=== PATIENT | male | born 1950 | race Caucasian/White ===

== ENCOUNTER 2016-11-29 09:50 | Day surgery (SDC) | payer BC, MEDICARE ==
[~2016-11-29 09:50] MED LIST: Cefuroxime 10 MG/ML SYRINGE EYELF SCH; Lidocaine 1% PF 2 ML SDV INJECT SCH; Pilocarpine 4% Ophth Soln 15 ML Bot EYELF SCH; Proparacaine 0.5% Ophth Soln 15 ML Bottle EYEBOTH SCH; Tetracaine 0.5% 2 ML Bottle EYELF SCH
[2016-11-29] MEDS: Polymyxin B/Trimethoprim 10 ML Bottle EYELF SCH ×3 (10:41→12:27)
[2016-11-29] MEDS: Apraclonidine 0.5% Ophth Soln 5 ML Bot EYELF SCH ×3 (10:46→12:27)
[2016-11-29] MEDS: Phenylephrine 2.5% Ophth Soln 2 ML Bot EYELF SCH ×5 (10:52→12:09)
--- NOTE | 2016-11-29 11:21 | PCM.PREANE ---
Preanesthetic Assessment - Anesthesia/Transfusion/Family Hx Anesthesia History: Prior Anesthesia Without Reaction Type of Anesthesia Reaction: Unknown Family History of Anesthesia Reaction: No Transfusion History: Unknown - Review of Systems General: No Symptoms Pulmonary: No Symptoms Cardiovascular: No Symptoms Gastrointestinal: No symptoms Neurological: No Symptoms Other: Reports: None - Physical Assessment NPO Status Date: 11/28/16 NPO Status Time: 20:00 Pulse: 46 O2 Sat by Pulse Oximetry: 96 Respiratory Rate: 16 Blood Pressure: 146/63 Vital Signs: Last Vital Signs Temp 36.3 C 11/29/16 10:35 Pulse 45 L 11/29/16 10:35 Resp 16 11/29/16 10:35 BP 146/63 H 11/29/16 10:35 Pulse Ox 96 11/29/16 10:35 Height: 1.93 m Weight: 106.594 kg ASA Class: 1 Mental Status: Alert & Oriented x3 Dentition: Reports: Normal Dentition Thyro-Mental Finger Breadths: 3 Mouth Opening Finger Breadths: 3 ROM/Head Extension: Full Lungs: Clear to auscultation, Normal respiratory effort Cardiovascular: Regular Rate, Regular Rhythm - Allergies Allergies/Adverse Reactions: Allergies Allergy/AdvReac Type Severity Reaction Status Date / Time No Known Allergies Allergy Verified 11/29/16 10:56 - Blood Blood Available: No Product(s) Available: None - Anesthesia Plan Pre-Op Medication Ordered: None - Acknowledgements Anesthesia Type Planned: MAC Pt an Appropriate Candidate for the Planned Anesthesia: Yes Alternatives and Risks of Anesthesia Discussed w Pt/Guardian: Yes Pt/Guardian Understands and Agrees with Anesthesia Plan: Yes PreAnesthesia Questionnaire - HOME MEDS Home Medications: Home Meds Multivitamin [Multivitamins] 1 tab PO DAILY 11/28/16 [History] - CURRENT (IN HOUSE) MEDS Current Meds: Current Medications Apraclonidine HCl (Iopidine 0.5% Ophth Soln) 0 ml EYELF ASDIRECTED ARLYN Stop: 11/29/16 18:00 Last Admin: 11/29/16 10:46 Dose: 1 drop Cefuroxime Sodium (Zinacef) 0 mg EYELF ASDIRECTED ARLYN Stop: 11/29/16 18:00 Lidocaine HCl (Xylocaine-Mpf 1%) 2 ml INJECT ASDIRECTED ARLYN Stop: 11/29/16 18:00 Phenylephrine HCl (Don-Synephrine 2.5% Ophth Soln) 0 ml EYELF ASDIRECTED ARLYN Stop: 11/29/16 18:00 Last Admin: 11/29/16 11:11 Dose: 1 drop Pilocarpine HCl (Pilocar 4% Ophth Soln) 0 ml EYELF ASDIRECTED ARLYN Stop: 11/29/16 18:00 Polymyxin/Trimethoprim Sulfate (Polytrim Ophth Soln) 0 ml EYELF ASDIRECTED ARLYN Stop: 11/29/16 18:00 Last Admin: 11/29/16 10:41 Dose: 1 drop Proparacaine HCl (Proparacaine 0.5% Ophth Soln) 0 ml EYEBOTH ASDIRECTED ARLYN Stop: 11/29/16 18:00 Tetracaine (Pontocaine 0.5% Ophth Drops) 0 ml EYELF ASDIRECTED ARLYN Stop: 11/29/16 18:00 Tropicamide (Mydriacyl 1% Ophth Soln) 0 ml EYELF ASDIRECTED ARLYN Stop: 11/29/16 18:00 Last Admin: 11/29/16 11:07 Dose: 1 drop Preanesthetic Assessment - PHYSICAL ASSESSMENT O2 Sat by Pulse Oximetry: 96 RR: 16 Vital Signs: Last Vital Signs Temp 36.3 C 11/29/16 10:35 Pulse 45 L 11/29/16 10:35 Resp 16 11/29/16 10:35 BP 146/63 H 11/29/16 10:35 Pulse Ox 96 11/29/16 10:35 Height: 1.93 m Weight: 106.594 kg NPO Status Date: 11/28/16 NPO Status Time: 20:00 - ALLERGIES Allergies/Adverse Reactions: Allergies Allergy/AdvReac Type Severity Reaction Status Date / Time No Known Allergies Allergy Verified 11/29/16 10:56
--- NOTE | 2016-11-29 12:33 | PCM48HPAN ---
Post Anesthesia Note - EVALUATION WITHIN 48HRS OF ANESTHETIC Vital Signs in Normal Range: Yes Patient Participated in Evaluation: Yes Respiratory Function Stable: Yes Airway Patent: Yes Cardiovascular Function Stable: Yes Hydration Status Stable: Yes Pain Control Satisfactory: Yes Nausea and Vomiting Control Satisfactory: Yes Mental Status Recovered: Yes
[2016-11-29 12:51] VITALS: BP 148/82
== END 2016-11-29 12:40 | disposition home or self-care (01) ==
LOC: JD.SDS 09:50
PROVIDERS: ATTEND Ophthalmology
DX: H26.9 Unspecified cataract (principal); Z96.659 Presence of unspecified artificial knee joint; Z98.890 Other specified postprocedural states; Z79.899 Other long term (current) drug therapy; Z87.891 Personal history of nicotine dependence
CPT/HCPCS: 66984; A9270; C1780; J0697

== ENCOUNTER 2017-01-24 11:31 | Day surgery (SDC) | payer BC, MEDICARE ==
[~2017-01-24 11:31] MED LIST changes: -Cefuroxime 10 MG/ML SYRINGE EYELF SCH; +Cefuroxime 10 MG/ML SYRINGE EYERT SCH; -Pilocarpine 4% Ophth Soln 15 ML Bot EYELF SCH; +Pilocarpine 4% Ophth Soln 15 ML Bot EYERT SCH; -Proparacaine 0.5% Ophth Soln 15 ML Bottle EYEBOTH SCH; -Tetracaine 0.5% 2 ML Bottle EYELF SCH
[2017-01-24] MEDS ORDERED: ALPRAZolam 0.25 MG Tab PO ONE (12:53)
--- NOTE | 2017-01-24 12:54 | PCM.PREANE ---
Preanesthetic Assessment - Anesthesia/Transfusion/Family Hx Anesthesia History: Prior Anesthesia Without Reaction Family History of Anesthesia Reaction: No Transfusion History: No Prior Transfusion(s) - Review of Systems General: No Symptoms Pulmonary: No Symptoms Cardiovascular: No Symptoms Gastrointestinal: No symptoms Neurological: No Symptoms Other: Reports: None - Physical Assessment NPO Status Date: 01/24/17 NPO Status Time: 05:00 Pulse: 48 O2 Sat by Pulse Oximetry: 95 Respiratory Rate: 16 Blood Pressure: 155/85 Temperature: 36.3 C Height: 1.93 m Weight: 106.594 kg ASA Class: 2 Mental Status: Alert & Oriented x3 Dentition: Reports: Normal Dentition, [place](s), Broken Tooth/Teeth Thyro-Mental Finger Breadths: 3 Mouth Opening Finger Breadths: 2 ROM/Head Extension: Full Lungs: Clear to auscultation, Normal respiratory effort Cardiovascular: Regular Rate, Regular Rhythm, No Murmurs - Allergies Allergies/Adverse Reactions: Allergies Allergy/AdvReac Type Severity Reaction Status Date / Time No Known Allergies Allergy Verified 01/23/17 15:33 - Blood Blood Available: No Product(s) Available: None - Anesthesia Plan Pre-Op Medication Ordered: None - Acknowledgements Anesthesia Type Planned: MAC Pt an Appropriate Candidate for the Planned Anesthesia: Yes Alternatives and Risks of Anesthesia Discussed w Pt/Guardian: Yes Pt/Guardian Understands and Agrees with Anesthesia Plan: Yes PreAnesthesia Questionnaire - SUBSTANCE USE Smoking Status *Q: Never Smoker Tobacco Use Within Last Twelve Months: No Second Hand Smoke Exposure: No Days Per Week of Alcohol Use: 2 Number of Drinks Per Day: 1 Total Drinks Per Week: 2 Recreational Drug Use History: No - HOME MEDS Home Medications: Home Meds Multivitamin [Multivitamins] 1 tab PO DAILY 11/28/16 [History] - CURRENT (IN HOUSE) MEDS Current Meds: Current Medications Brimonidine Tartrate (Alphagan 0.2% Ophth Soln) 0 ml EYERT ASDIRECTED ARLYN Stop: 01/24/17 18:00 Cefuroxime Sodium (Zinacef) 0 mg EYERT ASDIRECTED ARLYN Stop: 01/24/17 18:00 Lidocaine HCl (Xylocaine-Mpf 1%) 1 ml INJECT ASDIRECTED ARLYN Stop: 01/24/17 18:00 Phenylephrine HCl (Don-Synephrine 2.5% Ophth Soln) 0 ml EYERT ASDIRECTED ARLYN Stop: 01/24/17 18:00 Pilocarpine HCl (Pilocar 4% Ophth Soln) 0 ml EYERT ASDIRECTED ARLYN Stop: 01/24/17 18:00 Polymyxin/Trimethoprim Sulfate (Polytrim Ophth Soln) 0 ml EYERT ASDIRECTED ARLYN Stop: 01/24/17 18:00 Tetracaine (Pontocaine 0.5% Ophth Drops) 0 ml EYERT ASDIRECTED ARLYN Stop: 01/24/17 18:00 Tropicamide (Mydriacyl 1% Ophth Soln) 0 ml EYERT ASDIRECTED ARLYN Stop: 01/24/17 18:00
[2017-01-24] MEDS: Polymyxin B/Trimethoprim 10 ML Bottle EYERT SCH ×3 (13:01→14:31)
[2017-01-24] MEDS: Brimonidine 0.2% Ophth Soln 5 ML Bottle EYERT SCH ×3 (13:06→14:31)
[2017-01-24] MEDS: Phenylephrine 2.5% Ophth Soln 2 ML Bot EYERT SCH ×5 (13:11→14:13)
[2017-01-24] MEDS: Tetracaine 0.5% 2 ML Bottle EYERT SCH ×4 (14:07→14:20)
[2017-01-24 14:46] VITALS: BP 152/92
== END 2017-01-24 14:41 | disposition home or self-care (01) ==
LOC: JD.SDS 11:31
PROVIDERS: ATTEND Ophthalmology
DX: H25.811 Combined forms of age-related cataract, right eye (principal); H52.31 Anisometropia; H40.053 Ocular hypertension, bilateral; H35.372 Puckering of macula, left eye; N19 Unspecified kidney failure; Z98.42 Cataract extraction status, left eye; Z96.1 Presence of intraocular lens; Z87.891 Personal history of nicotine dependence; Z79.899 Other long term (current) drug therapy; Z98.890 Other specified postprocedural states; Z83.518 Family history of other specified eye disorder
CPT/HCPCS: 66984; A9270; C1780; J0697

== ENCOUNTER 2021-01-25 06:17 | Day surgery (SDC) | payer MEDICARE, BC ==
--- NOTE | 2021-01-22 07:15 | PCM.SN.2 ---
- Free Text/Narrative Note: Right selective femoral nerve block at the adductor canal for post-procedure pain control under US guidance requested by Dr. Arguello. Time Out: 910 Start: 914 End: 914 Chart reviewed. Consent signed. Questions answered. Appropriate monitors applied. Time out performed. Right mid-shaft femur identified with ultrasound, scanning medially of femur, the femoral artery in the adductor canal visualized, and the femoral nerve located laterally to the artery. The skin was prepped lateral to the ultrasound probe with chlorahexadine times two. The 21ga 4 insulated block needle was inserted under direct ultrasound guidance into the adductor canal. 20mL of 0.5% ropivacaine with 1:200,000 epinephrine was injected circumferentially around the nerve with intermittent negative aspiration noted. Patient tolerated the procedure well. Sterile technique noted along with sterile gloves, mask, and sterile probe cover. See picture on progress note and vital signs on nurses notes. Block completed in PACU. Thank you, Peg Tejada CRNA
[~2021-01-25 06:17] MED LIST changes: +Acetaminophen 325 MG Tab PO SCH; -Cefuroxime 10 MG/ML SYRINGE EYERT SCH; +EPINEPHrine 1 MG/ML SDV ONE; +Lactated Ringers 1,000 ML IV SCH; -Lidocaine 1% PF 2 ML SDV INJECT SCH; +Lidocaine 1%/Sod Bicarbonate in NS 8.4% 1 ML Syringe IDERM PRN; -Pilocarpine 4% Ophth Soln 15 ML Bot EYERT SCH; +Pregabalin 25 MG Cap PO SCH; +Ropivacaine 0.5% 5 MG/ML 30 ML SDV ONE; +Sodium Chloride 0.9% 10 ML Syringe FLUSH PRN; +oxyCODONE ER 10 MG TAB.ER PO SCH
[2021-01-25] MEDS ORDERED: Lidocaine 1% 4 ML ONE (06:20)
[2021-01-25] MEDS ORDERED: Midazolam 1 MG/ML 2 ML SDV ONE (06:20)
[2021-01-25] MEDS ORDERED: Propofol 200 MG/20 ML SDV ONE ×2 (06:20→08:15)
[2021-01-25] MEDS ORDERED: fentaNYL 100 MCG/2 ML SDV ONE (06:20)
[2021-01-25] MEDS ORDERED: ceFAZolin 1 GM Vial ONE (06:20)
--- NOTE | 2021-01-25 06:35 | PCM.PREANE ---
Preanesthetic Assessment - Anesthesia/Transfusion/Family Hx Anesthesia History: Prior Anesthesia Without Reaction Family History of Anesthesia Reaction: No Transfusion History: No Prior Transfusion(s) Intubation History: History of Difficulty Intubation - Review of Systems General: No Symptoms Pulmonary: No Symptoms Cardiovascular: No Symptoms Gastrointestinal: No Symptoms Neurological: No Symptoms Other: Reports: Diabetes (BS 134 @ 48589) - Physical Assessment NPO Status Date: 01/24/21 NPO Status Time: 20:00 ASA Class: 2 Mental Status: Alert & Oriented x3 Airway Class: Mallampati = 3 Dentition: Reports: Normal Dentition ROM/Head Extension: Full Lungs: Clear to Auscultation, Normal Respiratory Effort Cardiovascular: Regular Rate, Regular Rhythm - Allergies Allergies/Adverse Reactions: Allergies Allergy/AdvReac Type Severity Reaction Status Date / Time No Known Allergies Allergy Verified 01/22/21 12:44 - Acknowledgements Anesthesia Type Planned: Spinal, Regional Block Pt an Appropriate Candidate for the Planned Anesthesia: Yes Alternatives and Risks of Anesthesia Discussed w Pt/Guardian: Yes Pt/Guardian Understands and Agrees with Anesthesia Plan: Yes PreAnesthesia Questionnaire HEENT History: Reports: Other (See Below) Other HEENT History: tinnitis, decreased hearing, wears glasses Other Cardiovascular History: mitral valve regurgitation, high cholesterol, bradycardia Respiratory History: Reports: Other (See Below) Other Respiratory History: history of difficult intubation Gastrointestinal History: Reports: Diverticulosis, Hiatal Hernia, Other (See Below) Other Gastrointestinal History: umbilical hernia Genitourinary History: Reports: Other (See Below) Other Genitourinary History: acute kidney injury, kidney biopsy 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 Musculoskeletal History: Reports: Arthritis, Other (See Below) Other Musculoskeletal History: left shoulder pain Neurological History: Reports: None Psychiatric History: Reports: None Endocrine/Metabolic History: Reports: Diabetes, Type II Hematologic History: Reports: None Immunologic History: Reports: None Oncologic (Cancer) History: Reports: None Dermatologic History: Reports: None - Past Surgical History Head Surgeries/Procedures: Reports: None HEENT Surgical History: Reports: Eye Surgery, Tonsillectomy Cardiovascular Surgical History: Reports: None Respiratory Surgical History: Reports: None GI Surgical History: Reports: Colonoscopy, Other (See Below) Other GI Surgeries/Procedures: umbilical hernia, laparoscopy, ventral hernia with repair Female Surgical History: Reports: None Male Surgical History: Reports: None Endocrine Surgical History: Reports: None Neurological Surgical History: Reports: None Musculoskeletal Surgical History: Reports: Knee Replacement Dermatological Surgical History: Reports: None - SUBSTANCE USE Tobacco Use Status *Q: Former Tobacco User Recreational Drug Use History: No - HOME MEDS Home Medications: Home Meds Multivitamin [Multivitamins] 1 tab PO DAILY 11/28/16 [History] Acetaminophen [Tylenol] 650 mg PO DAILY 01/22/21 [History] Beta-Carotene(A) w/C & E/Min [Prosight] 1 tab PO DAILY 01/22/21 [History] Cholecalciferol (Vitamin D3) [Vitamin D3] 5,000 unit PO DAILY 01/22/21 [History] Rosuvastatin Calcium 20 mg PO DAILY 01/22/21 [History] Tamsulosin HCl [Flomax] 0.4 mg PO DAILY 01/22/21 [History] Zinc 50 mg PO DAILY 01/22/21 [History] metFORMIN [Glucophage XR] 500 mg PO BID 01/22/21 [History] Aspirin [Aspirin EC] 325 mg PO BID #84 tab 01/25/21 [Rx] Cyclobenzaprine [Flexeril] 10 mg PO BID PRN #20 tab 01/25/21 [Rx] oxyCODONE 5 - 10 mg PO Q4H PRN #40 tab 01/25/21 [Rx] - CURRENT (IN HOUSE) MEDS Current Meds: Current Medications Acetaminophen (Acetaminophen 325 Mg Tab) 975 mg PO ONETIME ARLYN Morphine Sulfate 8 mg/Epinephrine HCl 0.3 mg/Cefuroxime Sodium 750 mg/Ketorolac Tromethamine 30 mg/Sodium Chloride 7.9 ml 0 mg .XX ASDIRECTED PRN PRN Reason: Pain Stop: 01/25/21 13:00 Lactated Ringer's (Ringers, Lactated) 1,000 mls @ 125 mls/hr IV ASDIRECTED ARLYN Stop: 01/25/21 23:00 Lidocaine/Sodium Bicarbonate (Lidocaine 1%/Sod Bicarbonate In Ns 8.4% 1 Ml Syringe) 0.25 ml IDERM ONETIME PRN PRN Reason: Prior to IV Start Stop: 01/25/21 18:00 Oxycodone HCl (Oxycodone Er 10 Mg Tab.Er) 10 mg PO ONETIME ARLYN Pregabalin (Pregabalin 25 Mg Cap) 50 mg PO ONETIME ARLYN Sodium Chloride (Sodium Chloride 0.9% 10 Ml Syringe) 10 ml FLUSH ASDIRECTED PRN PRN Reason: Keep Vein Open Stop: 01/25/21 18:00 Discontinued Medications Cefazolin Sodium (Cefazolin 1 Gm Vial) Confirm Administered Dose 2 gm .ROUTE .STK-MED ONE Stop: 01/25/21 06:21 Epinephrine HCl (Epinephrine 1 Mg/Ml Sdv) Confirm Administered Dose 1 mg .ROUTE .STK-MED ONE Stop: 01/25/21 06:15 Fentanyl (Fentanyl 100 Mcg/2 Ml Sdv) Confirm Administered Dose 100 mcg .ROUTE .STK-MED ONE Stop: 01/25/21 06:21 Lidocaine HCl (Xylocaine-Mpf 1%) Confirm Administered Dose 4 mls @ as directed .ROUTE .STK-MED ONE Stop: 01/25/21 06:21 Midazolam HCl (Midazolam 1 Mg/Ml 2 Ml Sdv) Confirm Administered Dose 2 mg .ROUTE .STK-MED ONE Stop: 01/25/21 06:21 Propofol (Propofol 200 Mg/20 Ml Sdv) Confirm Administered Dose 200 mg .ROUTE .STK-MED ONE Stop: 01/25/21 06:21 Ropivacaine (Ropivacaine 0.5% 5 Mg/Ml 30 Ml Sdv) Confirm Administered Dose 30 ml .ROUTE .STK-MED ONE Stop: 01/25/21 06:15 Tranexamic Acid (Tranexamic Acid 1,000 Mg/10 Ml Amp) Confirm Administered Dose 1,000 mg .ROUTE .STK-MED ONE Stop: 01/25/21 06:27 Vancomycin HCl (Vancomycin 1 Gm Sdv) Confirm Administered Dose 1 gm .ROUTE .STK- MED ONE Stop: 01/25/21 06:27
--- NOTE | 2021-01-25 06:58 | PCM.PREANE ---
Preanesthetic Assessment - Anesthesia/Transfusion/Family Hx Anesthesia History: Prior Anesthesia Without Reaction Family History of Anesthesia Reaction: No Transfusion History: No Prior Transfusion(s) Intubation History: History of Difficulty Intubation - Review of Systems Other: Reports: Diabetes (BS 134 @ 95624) - Physical Assessment NPO Status Date: 01/24/21 NPO Status Time: 20:00 Vital Signs: Last Vital Signs Temp 36.4 C 01/25/21 06:20 Pulse 54 L 01/25/21 06:20 Resp 16 01/25/21 06:20 BP 134/74 01/25/21 06:20 Pulse Ox 97 01/25/21 06:20 Cardiovascular: Murmurs - Allergies Allergies/Adverse Reactions: Allergies Allergy/AdvReac Type Severity Reaction Status Date / Time No Known Allergies Allergy Verified 01/22/21 12:44 PreAnesthesia Questionnaire HEENT History: Reports: Other (See Below) Other HEENT History: tinnitis, decreased hearing, wears glasses Other Cardiovascular History: mitral valve regurgitation, high cholesterol, bradycardia Respiratory History: Reports: Other (See Below) Other Respiratory History: history of difficult intubation Gastrointestinal History: Reports: Diverticulosis, Hiatal Hernia, Other (See Below) Other Gastrointestinal History: umbilical hernia Genitourinary History: Reports: Other (See Below) Other Genitourinary History: acute kidney injury, kidney biopsy 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 Musculoskeletal History: Reports: Arthritis, Other (See Below) Other Musculoskeletal History: left shoulder pain Neurological History: Reports: None Psychiatric History: Reports: None Endocrine/Metabolic History: Reports: Diabetes, Type II Hematologic History: Reports: None Immunologic History: Reports: None Oncologic (Cancer) History: Reports: None Dermatologic History: Reports: None - Past Surgical History Head Surgeries/Procedures: Reports: None HEENT Surgical History: Reports: Eye Surgery, Tonsillectomy Cardiovascular Surgical History: Reports: None Respiratory Surgical History: Reports: None GI Surgical History: Reports: Colonoscopy, Other (See Below) Other GI Surgeries/Procedures: umbilical hernia, laparoscopy, ventral hernia with repair Female Surgical History: Reports: None Male Surgical History: Reports: None Endocrine Surgical History: Reports: None Neurological Surgical History: Reports: None Musculoskeletal Surgical History: Reports: Knee Replacement Dermatological Surgical History: Reports: None - SUBSTANCE USE Tobacco Use Status *Q: Former Tobacco User Recreational Drug Use History: No - HOME MEDS Home Medications: Home Meds Multivitamin [Multivitamins] 1 tab PO DAILY 11/28/16 [History] Acetaminophen [Tylenol] 650 mg PO DAILY 01/22/21 [History] Beta-Carotene(A) w/C & E/Min [Prosight] 1 tab PO DAILY 01/22/21 [History] Cholecalciferol (Vitamin D3) [Vitamin D3] 5,000 unit PO DAILY 01/22/21 [History] Rosuvastatin Calcium 20 mg PO DAILY 01/22/21 [History] Tamsulosin HCl [Flomax] 0.4 mg PO DAILY 01/22/21 [History] Zinc 50 mg PO DAILY 01/22/21 [History] metFORMIN [Glucophage XR] 500 mg PO BID 01/22/21 [History] Aspirin [Aspirin EC] 325 mg PO BID #84 tab 01/25/21 [Rx] Cyclobenzaprine [Flexeril] 10 mg PO BID PRN #20 tab 01/25/21 [Rx] oxyCODONE 5 - 10 mg PO Q4H PRN #40 tab 01/25/21 [Rx] - CURRENT (IN HOUSE) MEDS Current Meds: Current Medications Acetaminophen (Acetaminophen 325 Mg Tab) 975 mg PO ONETIME ARLYN Morphine Sulfate 8 mg/Epinephrine HCl 0.3 mg/Cefuroxime Sodium 750 mg/Ketorolac Tromethamine 30 mg/Sodium Chloride 7.9 ml 0 mg .XX ASDIRECTED PRN PRN Reason: Pain Stop: 01/25/21 13:00 Lactated Ringer's (Ringers, Lactated) 1,000 mls @ 125 mls/hr IV ASDIRECTED ARLYN Stop: 01/25/21 23:00 Lidocaine/Sodium Bicarbonate (Lidocaine 1%/Sod Bicarbonate In Ns 8.4% 1 Ml Syringe) 0.25 ml IDERM ONETIME PRN PRN Reason: Prior to IV Start Stop: 01/25/21 18:00 Oxycodone HCl (Oxycodone Er 10 Mg Tab.Er) 10 mg PO ONETIME ARLYN Pregabalin (Pregabalin 25 Mg Cap) 50 mg PO ONETIME ARLYN Sodium Chloride (Sodium Chloride 0.9% 10 Ml Syringe) 10 ml FLUSH ASDIRECTED PRN PRN Reason: Keep Vein Open Stop: 01/25/21 18:00 Discontinued Medications Cefazolin Sodium (Cefazolin 1 Gm Vial) Confirm Administered Dose 2 gm .ROUTE .STK-MED ONE Stop: 01/25/21 06:21 Epinephrine HCl (Epinephrine 1 Mg/Ml Sdv) Confirm Administered Dose 1 mg .ROUTE .STK-MED ONE Stop: 01/25/21 06:15 Fentanyl (Fentanyl 100 Mcg/2 Ml Sdv) Confirm Administered Dose 100 mcg .ROUTE .STK-MED ONE Stop: 01/25/21 06:21 Lidocaine HCl (Xylocaine-Mpf 1%) Confirm Administered Dose 4 mls @ as directed .ROUTE .STK-MED ONE Stop: 01/25/21 06:21 Midazolam HCl (Midazolam 1 Mg/Ml 2 Ml Sdv) Confirm Administered Dose 2 mg .ROUTE .STK-MED ONE Stop: 01/25/21 06:21 Propofol (Propofol 200 Mg/20 Ml Sdv) Confirm Administered Dose 200 mg .ROUTE .STK-MED ONE Stop: 01/25/21 06:21 Ropivacaine (Ropivacaine 0.5% 5 Mg/Ml 30 Ml Sdv) Confirm Administered Dose 30 ml .ROUTE .STK-MED ONE Stop: 01/25/21 06:15 Tranexamic Acid (Tranexamic Acid 1,000 Mg/10 Ml Amp) Confirm Administered Dose 1,000 mg .ROUTE .STK-MED ONE Stop: 01/25/21 06:27 Vancomycin HCl (Vancomycin 1 Gm Sdv) Confirm Administered Dose 1 gm .ROUTE .STK- MED ONE Stop: 01/25/21 06:27
[2021-01-25] MEDS ORDERED: ePHEDrine 50 MG/ML SDV ONE (07:26)
[2021-01-25] MEDS ORDERED: Lactated Ringers 1,000 ML ONE (07:29)
[2021-01-25] MEDS ORDERED: Ondansetron 4 MG/2 ML SDV ONE (07:37)
[2021-01-25] MEDS ORDERED: Ketorolac 30 MG/ML SDV ONE (07:37)
[2021-01-25] MEDS ORDERED: Ondansetron 4 MG/2 ML SDV IVPUSH PRN (07:53)
[2021-01-25] MEDS ORDERED: fentaNYL 100 MCG/2 ML SDV IVPUSH PRN (07:53)
[2021-01-25] MEDS: Morphine 8 MG, EPINEPHrine 0.3 MG, Cefuroxime 750 MG, Ketorolac 30 MG, Sodium Chloride ... PRN ×10 (08:09→08:19)
[2021-01-25] MEDS: Vancomycin 1 GM SDV ONE ×2 (08:10→08:29)
--- NOTE | 2021-01-25 08:57 | PCM.POSTAN ---
POST ANESTHESIA ASSESSMENT - MENTAL STATUS Mental Status: Alert, Oriented - VITAL SIGNS Vital Signs: Last Vital Signs Temp 36.4 C 01/25/21 06:20 Pulse 54 L 01/25/21 06:20 Resp 16 01/25/21 06:20 BP 134/74 01/25/21 06:20 Pulse Ox 97 01/25/21 06:20 - RESPIRATORY Respiratory Status: Respiratory Rate WNL, Airway Patent, O2 Saturation Stable - CARDIOVASCULAR CV Status: Pulse Rate WNL, Blood Pressure Stable - GASTROINTESTINAL GI Status: No Symptoms - PAIN Pain Score: 0 - POST OP HYDRATION Hydration Status: Adequate & Stable
--- NOTE | 2021-01-25 10:59 | CR ---
Right knee: AP and lateral views of the right knee were obtained utilizing portable technique. Comparison: Prior knee study of 04/13/09. Right knee prosthesis is seen. Components are aligned. Underlying bony structures are intact. Patellar prosthesis is also seen. Small joint effusion is seen. Soft tissue air is noted. Impression: 1. Satisfactory appearance of recently placed right knee prosthesis. Diagnostic code #2
--- NOTE | 2021-01-25 11:43 | PCM48HPAN ---
Post Anesthesia Note - EVALUATION WITHIN 48HRS OF ANESTHETIC Vital Signs in Normal Range: Yes Patient Participated in Evaluation: Yes Respiratory Function Stable: Yes Airway Patent: Yes Cardiovascular Function Stable: Yes Hydration Status Stable: Yes Pain Control Satisfactory: Yes Nausea and Vomiting Control Satisfactory: Yes Mental Status Recovered: Yes Vital Signs: Last Vital Signs Temp 36.3 C 01/25/21 10:10 Pulse 59 L 01/25/21 10:10 Resp 14 01/25/21 10:10 BP 115/62 01/25/21 10:10 Pulse Ox 97 01/25/21 10:10
[2021-01-25 13:26] VITALS: BP 131/82; PULSE 61
--- NOTE | 2021-02-01 07:47 | PCM.OPNOTE ---
- General Post-Op/Procedure Note Date of Surgery/Procedure: 01/25/21 Operative Procedure(s): revision right total knee arthroplasty patellar component Pre Op Diagnosis: painful right total knee arthroplasty Post-Op Diagnosis: Same Anesthesia Technique: Local, MAC, Spinal Primary Surgeon: Tyrese Arguello Anesthesia Provider: Sheeba Spencer Small Animal Veterinarian: Gaye Vargas Small Animal Veterinarian: Aminah Nobles in mLs: 5 Complications: None Condition: Good Free Text/Narrative:: 35x10
--- NOTE | 2021-02-04 09:19 | OR ---
DATE OF OPERATION: 01/25/2021 SURGEON: Tyrese Arguello MD OPERATION PERFORMED: Revision right total knee arthroplasty, patellar component. PREOPERATIVE DIAGNOSIS: Painful right total knee arthroplasty. POSTOPERATIVE DIAGNOSIS: Painful right total knee arthroplasty. ANESTHESIA: Local MAC with spinal. ANESTHESIA PROVIDER: Sheeba Spencer CRNA CERTIFIED REGISTERED NURSE ANESTHETIST: Gaye Vargas PA-C; and Aminah Nobles LPN. ESTIMATED BLOOD LOSS: 5 mL. COMPLICATIONS: None. CONDITION: Stable. IMPLANTS: Cemented [place] 35 x 10 mm asymmetric patella. DESCRIPTION OF PROCEDURE: The patient was identified in the preoperative holding area. Proper site was marked and identified by the surgeon. The patient was taken back to the operative theater, where after adequate anesthesia, the patient's right lower extremity was sterilely prepped and draped in the usual sterile fashion. OR time-out was performed. The patient received 2 g IV Ancef. Right lower extremity was then exsanguinated. Tourniquet was insufflated to 250 mmHg. The previous anterior incision was utilized. This was taken down and a medial parapatellar arthrotomy was created. The patient was noted to have a large amount of scar tissue around the patellar component as well as calcified tissue on the anterior portion of the tibia and around the entire patellar component and into his quadriceps tendon. At this time, I did an extensive debridement of the synovium as well as all calcified tissue around his patellar component, removing excess bone as well that had formed all around the patellar component. At this time, a reciprocating saw was then used to remove the patellar component. The patellar component that was there measured a 30 mm. At this time, we resected it down to a 14 for a 35 x 10 mm patella. Drill holes were then drilled. The patient was noted to have a small cyst, so we eccentrically located the drill holes to miss the cyst. At this time, cement was mixed on the back table. The patellar component was irrigated and the patellar component was then cemented into place with a 35 x 10 mm asymmetric [place] patella. The rest of the components appeared intact. There was no signs of infection otherwise. The patient after we did the debridement and the new patellar component gained 10 degrees of flexion compared to preoperative motion. 1 L of pulse lavage irrigation with Ancef was irrigated through the needle as well as IrriSept irrigation. Periarticular injection was completed. #2 barbed suture was used for closure of the medial parapatellar arthrotomy, 2-0 Vicryl was used subcutaneously, as well as Stratafix and Prineo was used for closure of the skin. The patient had a sterile soft dressing applied and sent to the PACU in stable condition. MMODAL /[id number]
== END 2021-01-25 13:10 | disposition home or self-care (01) ==
LOC: JD.SDS 06:17
PROVIDERS: ATTEND Orthopaedic Surgery
DX: T84.84XA Pain due to internal orthopedic prosthetic devices, implants and grafts, initial encounter (principal); E11.9 Type 2 diabetes mellitus without complications; E78.00 Pure hypercholesterolemia, unspecified; E78.5 Hyperlipidemia, unspecified; H93.13 Tinnitus, bilateral; R00.1 Bradycardia, unspecified; Z87.891 Personal history of nicotine dependence; Z79.82 Long term (current) use of aspirin; Z79.84 Long term (current) use of oral hypoglycemic drugs; Z79.899 Other long term (current) drug therapy; Z96.651 Presence of right artificial knee joint; G89.18 Other acute postprocedural pain; M25.561 Pain in right knee
CPT/HCPCS: 27486; 73560; 82947; 97110; 97161; 97165; 97535; A9270; C1776; J0171; J0690; J0697; J1885; J2250; J2270; J2405; J2704; J2795; J3010; J3370; J7120; 01402; 64450; 76942; 99100

== ENCOUNTER 2022-04-20 17:36 | Emergency (ER) | payer MEDICARE, BC ==
[2022-04-20 18:00] VITALS: BP 155/74; PULSE 55
== END 2022-04-20 19:38 | disposition home or self-care (01) ==
LOC: JD.ED 17:36
DX: M16.11 Unilateral primary osteoarthritis, right hip (principal); E11.9 Type 2 diabetes mellitus without complications; E78.00 Pure hypercholesterolemia, unspecified; Z79.82 Long term (current) use of aspirin; Z79.84 Long term (current) use of oral hypoglycemic drugs; Z96.651 Presence of right artificial knee joint
CPT/HCPCS: 73502-26-RT; 73502-RT; 81003; 99283

== ENCOUNTER 2022-05-30 08:42 | Day surgery (SDC) | payer MEDICARE, BC ==
[~2022-05-30 08:42] MED LIST changes: -EPINEPHrine 1 MG/ML SDV ONE; +Lactated Ringers 1,000 ML ONE; +Lidocaine 1% 4 ML ONE; +Midazolam 1 MG/ML 2 ML SDV ONE; +Morphine 8 MG, EPINEPHrine 0.3 MG, Cefuroxime 750 MG, Ketorolac 30 MG, Sodium Chloride ... PRN; +Propofol 200 MG/20 ML SDV ONE; -Ropivacaine 0.5% 5 MG/ML 30 ML SDV ONE; +Sodium Chloride 0.9% 10 ML Syringe FLUSH SCH; +ceFAZolin 2 GM Vial ONE; +fentaNYL 100 MCG/2 ML SDV ONE
[2022-05-30] MEDS ORDERED: Vancomycin 1 GM SDV ONE (08:47)
[2022-05-30] MEDS ORDERED: Propofol 200 MG/20 ML SDV ONE (10:07)
[2022-05-30] MEDS ORDERED: ePHEDrine 50 MG/ML SDV ONE (10:13)
[2022-05-30] MEDS ORDERED: HYDROmorphone 0.5 MG/0.5 ML Syringe IVPUSH PRN (10:39)
[2022-05-30] MEDS ORDERED: Ondansetron 4 MG/2 ML SDV IVPUSH PRN (10:39)
[2022-05-30] MEDS ORDERED: fentaNYL 100 MCG/2 ML SDV IVPUSH PRN (10:39)
[2022-05-30] MEDS ORDERED: Ketorolac 30 MG/ML SDV ONE (11:13)
[2022-05-30] MEDS ORDERED: oxyCODONE 5 MG Tab PO ONE (12:13)
[2022-05-30 14:33] VITALS: PULSE 58
[2022-05-30] MEDS ORDERED: oxyCODONE 5 MG Tab PO SCH (15:30)
[2022-05-30 16:30] VITALS: BP 122/64
== END 2022-05-30 16:40 | disposition home or self-care (01) ==
LOC: JD.SDS 08:42
PROVIDERS: ATTEND Orthopaedic Surgery
DX: M16.11 Unilateral primary osteoarthritis, right hip (principal); E11.9 Type 2 diabetes mellitus without complications; E78.00 Pure hypercholesterolemia, unspecified; I34.0 Nonrheumatic mitral (valve) insufficiency; Z79.84 Long term (current) use of oral hypoglycemic drugs; Z98.890 Other specified postprocedural states; Z79.899 Other long term (current) drug therapy; Z90.49 Acquired absence of other specified parts of digestive tract; Z87.891 Personal history of nicotine dependence
CPT/HCPCS: 0055T; 27130; 36415; 73501; 86850; 86900; 86901; 97116; 97161; A9270; C1713; C1776; J0171; J0690; J0697; J1885; J2250; J2270; J2704; J3010; J3370; J7120; 01214

== ENCOUNTER 2022-07-21 05:58 | Day surgery (SDC) | payer MEDICARE, BC ==
[~2022-07-21 05:58] MED LIST changes: -Acetaminophen 325 MG Tab PO SCH; -Lactated Ringers 1,000 ML ONE; -Lidocaine 1% 4 ML ONE; -Midazolam 1 MG/ML 2 ML SDV ONE; -Morphine 8 MG, EPINEPHrine 0.3 MG, Cefuroxime 750 MG, Ketorolac 30 MG, Sodium Chloride ... PRN; -Pregabalin 25 MG Cap PO SCH; -Propofol 200 MG/20 ML SDV ONE; -ceFAZolin 2 GM Vial ONE; -fentaNYL 100 MCG/2 ML SDV ONE; -oxyCODONE ER 10 MG TAB.ER PO SCH
[2022-07-21] MEDS ORDERED: Lidocaine 1% with EPINEPHrine 1:100,000 20 ML MDV ONE (06:24)
[2022-07-21] MEDS ORDERED: Bupivacaine 0.25% 10 ML SDV ONE (06:24)
[2022-07-21] MEDS ORDERED: ceFAZolin 2 GM Vial ONE (06:46)
[2022-07-21] MEDS ORDERED: fentaNYL 100 MCG/2 ML SDV ONE (06:46)
[2022-07-21] MEDS ORDERED: Propofol 200 MG/20 ML SDV ONE (06:46)
[2022-07-21] MEDS ORDERED: Lidocaine 1% 5 ML VIAL ONE (06:46)
[2022-07-21] MEDS ORDERED: Ketorolac 15 MG/ML SDV ONE (07:29)
[2022-07-21 07:39] VITALS: BP 115/70; PULSE 54
== END 2022-07-21 08:05 | disposition home or self-care (01) ==
LOC: JD.SDS 05:58
PROVIDERS: ATTEND Orthopaedic Surgery
DX: G56.03 Carpal tunnel syndrome, bilateral upper limbs (principal); G56.11 Other lesions of median nerve, right upper limb; G56.22 Lesion of ulnar nerve, left upper limb; G56.02 Carpal tunnel syndrome, left upper limb; E11.9 Type 2 diabetes mellitus without complications; I34.0 Nonrheumatic mitral (valve) insufficiency; E78.00 Pure hypercholesterolemia, unspecified; Z98.890 Other specified postprocedural states; Z90.49 Acquired absence of other specified parts of digestive tract; Z87.891 Personal history of nicotine dependence; Z79.84 Long term (current) use of oral hypoglycemic drugs; Z96.659 Presence of unspecified artificial knee joint
CPT/HCPCS: 01810; 82947; J0690; J1885; J2704; J3010; J3490; J7120

== ENCOUNTER → 2022-08-11 | Day surgery (SDC) | payer MEDICARE, BC ==
[~2022-08-11] MED LIST changes: +Acetaminophen/HYDROcodone 325-5 MG Tab PO SCH; +Bupivacaine 0.25% 10 ML SDV ONE; +Dexamethasone 4 MG/ML 5 ML MDV ONE; +HYDROmorphone 0.5 MG/0.5 ML Syringe IVPUSH PRN; +Ketorolac 30 MG/ML SDV ONE; +Lidocaine 1% 10 ML MDV ONE; +Lidocaine 1% 5 ML VIAL ONE; +Midazolam 1 MG/ML 2 ML SDV ONE; +Ondansetron 4 MG/2 ML SDV IVPUSH PRN; +Ondansetron 4 MG/2 ML SDV ONE; +Propofol 200 MG/20 ML SDV ONE; +ceFAZolin 2 GM Vial ONE; +fentaNYL 100 MCG/2 ML SDV IVPUSH PRN; +fentaNYL 100 MCG/2 ML SDV ONE
[2022-08-11] MEDS: Bupivacaine 0.25% 10 ML SDV ONE ×2 (07:56→08:00)
[2022-08-11 09:58] VITALS: BP 120/72; PULSE 61
== END | disposition home or self-care (01) ==
LOC: JD.SDS 06:09
PROVIDERS: ATTEND Orthopaedic Surgery
DX: G56.02 Carpal tunnel syndrome, left upper limb (principal); G56.12 Other lesions of median nerve, left upper limb; G56.22 Lesion of ulnar nerve, left upper limb; E11.9 Type 2 diabetes mellitus without complications; E78.00 Pure hypercholesterolemia, unspecified; Z79.899 Other long term (current) drug therapy; Z79.84 Long term (current) use of oral hypoglycemic drugs; Z90.49 Acquired absence of other specified parts of digestive tract; Z98.890 Other specified postprocedural states; Z87.891 Personal history of nicotine dependence
CPT/HCPCS: 64718; 64721; 82947; A9270; J0690; J1100; J1885; J2250; J2405; J2704; J3010; J3490; J7120; 01810